=== PATIENT | male | born 1960 | race Hispanic/Latino ===

== ENCOUNTER 2025-03-22 16:12 | Outpatient (CLI) | payer OTHER ==
[2025-03-22 16:49] LABS: INR-International Normal Ratio 1.1; Prothrombin Time 14.4 sec (12.0-14.7)
[2025-03-22 16:56] LABS: Anion Gap 18 mmol/L (10-20); BUN (Urea Nitrogen) 15 mg/dL (8.4-25.7); Calc. Creatinine Clearance 0 mL/min (70-130); Calcium 9.3 mg/dL (7.8-10.44); Carbon Dioxide 22 mmol/L (23-31); Chloride 103 mmol/L (98-107); Glucose 125 mg/dL (80-115); Potassium 4.7 mmol/L (3.5-5.1); Sodium 138 mmol/L (136-145)
[2025-03-22 17:08] LABS: #Basophils 0.1 thou/uL (0.0-0.2); #Eosinophils 0.2 thou/uL (0.0-0.7); #Lymphocytes 2.2 thou/uL (1.20-3.40); #Monocytes 0.5 thou/uL (0.11-0.59); #Neutrophils 3.6 thou/uL (1.40-6.50); %Basophils 1.7 % (0.0-1.0); %Eosinophils 2.9 % (0.0-10.0); %Lymphocytes 33.2 % (21.0-51.0); %Monocytes 7.8 % (0.0-10.0); %Neutrophils 54.4 % (42.0-75.0); Hematocrit 39.7 % (42.0-52.0); Hemoglobin 13.6 g/dL (14.0-18.0); Mean Corpuscular Hemoglobin 33.6 pg (27.0-31.0); Mean Corpuscular Volume 98.4 fl (78.0-98.0); Platelet Count 184 10x3/uL (130-400); Red Blood Cell (RBC) Count 4.04 mill/uL (4.70-6.10); White Blood Cell (WBC) Count 6.5 10x3/uL (4.8-10.8)
[2025-03-22 22:34] LABS: Iron 48 ug/dL (65-175); Iron Binding Capacity, Total 373 mcg/dL (261-462)
[2025-03-22 22:55] LABS: Ferritin 128.92 ng/mL (22-322)
[2025-03-22 23:15] LABS: Hep A IgM AB NONREACTIVE (NonReactive); Hep A IgM S/CO 0.52 S/CO (0-0.79); Hep B Core IgM Index 0.10 S/CO (0-0.79); Hep B Surf Ag NONREACTIVE S/CO (NonReactive); Hep C IgG Ab NONREACTIVE S/CO (NonReactive); Hep C Index 0.09 S/CO (0-0.79)
[2025-03-23 13:27] LABS: Reference Lab Name LABCORP
== END 2025-03-22 16:13 | disposition home or self-care (01) ==
LOC: MADLAB 16:12
PROVIDERS: ATTEND Nurse Practitioner Family
DX: K74.60 Unspecified cirrhosis of liver (principal); R74.8 Abnormal levels of other serum enzymes; R79.89 Other specified abnormal findings of blood chemistry
CPT/HCPCS: 36415; 80048; 80074; 82390; 82728; 83516; 83540; 83550; 85025; 85610; 86015; 86038; 86225; 86708; 86803

== ENCOUNTER 2025-05-08 12:40 | Outpatient (CLI) | payer OTHER ==
[2025-05-08 13:38] LABS: Glucose, Urine (Dipstick) >=1000 mg/dL (Negative); Leukocyte Small (Negative); Protein, Urine (Dipstick) Negative (Neg-Trace); Specific Gravity, Urine 1.015 (1.005-1.030)
[2025-05-08 13:44] LABS: WBC/HPF 0-3 HPF (0-3)
[2025-05-08 13:45] LABS: Bacteria/HPF Rare-Few HPF (None Seen)
== END 2025-05-08 12:41 | disposition home or self-care (01) ==
LOC: MADLAB 12:40
PROVIDERS: ATTEND Urology
DX: R97.20 Elevated prostate specific antigen [PSA] (principal)
CPT/HCPCS: 81001; 87086